=== PATIENT | male | born 1940 | race Caucasian/White ===

== ENCOUNTER 2019-01-22 10:46 | Emergency (ER) | payer OTHER, MEDICARE ==
--- NOTE | 2019-01-22 10:59 | EDM.PDOC ---
ED HPI GENERAL MEDICAL PROBLEM - General Chief Complaint: Lower Extremity Injury/Pain Stated Complaint: INJURED LT HIP Time Seen by Provider: 01/22/19 10:54 Source of Information: Reports: Patient History Limitations: Reports: No Limitations - History of Present Illness INITIAL COMMENTS - FREE TEXT/NARRATIVE: HISTORY AND PHYSICAL: History of present illness: Patient is a 78-year-old male presents to the ED today via EMS with concern of left hip pain and injury that occurred last night about 7 PM. Patient states he went outside and slipped on the ice from standing height. Patient states he landed directly on his left hip. 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 Patient states he went to bed thinking that his pain would get better. Patient states he was unable to ambulate and get out of bed this morning so called EMS. Patient states that at his baseline he has a difficult time walking due to "bad knees"and a "bad back" from [place]. Patient states he did not hit his head and did not lose consciousness. Other than the hip pain, patient denies any other symptoms or concerns. Patient denies fever, chills, chest pain, shortness of breath, or cough. Denies headache, neck stiff ness, change in vision, syncope, or near syncope. Denies nausea, vomiting, abdominal pain, diarrhea, constipation, or dysuria. Has not noted any blood in urine or stool. Patient has been eating and drinking appropriately. Review of systems: As per history of present illness and below otherwise all systems reviewed and negative. Past medical history: As per history of present illness and as reviewed below otherwise noncontributory. Surgical history: As per history of present illness and as reviewed below otherwise noncontributory. Social history: See social history for further information Family history: As per history of present illness and as reviewed below otherwise noncontributory. Physical exam: General: Patient is alert, oriented, and in no acute distress. Patient laying comfortably on exam table. HEENT: Atraumatic, normocephalic, pupils equal and reactive bilaterally, negative for conjunctival pallor or scleral icterus, mucous membranes moist, TMs normal bilaterally, throat clear, neck supple, nontender, trachea midline. No drooling or trismus noted. No meningeal signs. No hot potato voice noted. Lungs: Clear to auscultation, breath sounds equal bilaterally, chest nontender. Heart: S1S2, regular rate and rhythm without overt murmur Abdomen: Soft, nondistended, nontender. Negative for masses or hepatosplenomegaly. Negative for costovertebral tenderness. Pelvis: Stable nontender. Genitourinary: Deferred. Rectal: Deferred. Skin: Intact, warm, dry. No lesions or rashes noted. Extremities: Atraumatic, negative for cords or calf pain. Neurovascular unremarkable. No obvious deformity of the complete spine. No step-offs, crepitus , or point tenderness to palpation of the complete spine. Neuro: Awake, alert, oriented. Cranial nerves II through XII unremarkable. Cerebellum unremarkable. Motor and sensory unremarkable throughout. Exam nonfocal. Notes: Trauma alert was called upon arrival to the ED. Dr. Vitale directly involved in patient care. I did call and speak to Dr. Villanueva, orthopedic on-call, and thoroughly discussed patient's diagnostics and physical exam. Per Dr. Villanueva, patient is to bear weight as tolerated with a walker and use NSAIDs for pain management. Patient is to follow-up with Dr. Villanueva in one week in the clinic for follow-up. Patient states he does have a walker available to him at home. Voices understanding and is agreeable to plan of care. Denies any further questions or concerns at this time. Diagnostics: Hip with pelvic XR, CXR, CBC, CMP, UA, EKG, troponin, pt/INR, lipase Therapeutics: None Prescription: Diclofenac Impression: Acute periprosthetic fracture of the left greater trochanter Plan: 1. Take medication as prescribed. You can also use Tylenol as directed for pain and discomfort. 2. Use a walker and weight-bear as tolerated. Follow-up with orthopedics in one week and as discussed. 3. Return to the ED as needed and as discussed. Definitive disposition and diagnosis as appropriate pending reevaluation and review of above. left hip Pain Score (Numeric/FACES): 8 - Related Data Allergies Allergy/AdvReac Type Severity Reaction Status Date / Time No Known Allergies Allergy Verified 01/22/19 11:06 Home Meds: Home Meds Aspirin [Lo-Dose Aspirin EC] 81 mg PO DAILY 01/22/19 [History] Cyclobenzaprine [Flexeril] 10 mg PO BEDTIME 01/22/19 [History] Cyproheptadine HCl 4 mg PO BEDTIME 01/22/19 [History] Diclofenac Sodium [Voltaren] 75 mg PO BIDMEALS PRN #15 tab.cr 01/22/19 [Rx] Donepezil HCl 10 mg PO DAILY 01/22/19 [History] Gabapentin [Neurontin] 100 mg PO BID 01/22/19 [History] Ibuprofen [Motrin] 600 mg PO Q8H PRN 01/22/19 [History] Losartan [Cozaar] 0.5 tab PO DAILY 01/22/19 [History] Melatonin 3 mg PO BEDTIME 01/22/19 [History] Mesalamine [Apriso] 2 tab PO BID 01/22/19 [History] Metoprolol Succinate [Toprol Xl] 0.5 tab PO BEDTIME 01/22/19 [History] Argyle-3/DHA/Epa/Fish Oil [Fish Oil 1,000 mg Softgel] 2 tab PO BID 01/22/19 [ History] Omeprazole 20 mg PO BID 01/22/19 [History] QUEtiapine [SEROquel] 0.5 tab PO DAILY 01/22/19 [History] Sertraline HCl [Zoloft] 1.5 tab PO DAILY 01/22/19 [History] Urea [Urea 20% Crm] 1 applic TOP ASDIRECTED 01/22/19 [History] atorvaSTATin [Lipitor] 80 mg PO BEDTIME 01/22/19 [History] traZODone HCl [Trazodone HCl] 2 tab PO BEDTIME 01/22/19 [History] ED ROS GENERAL - Review of Systems Review Of Systems: ROS reveals no pertinent complaints other than HPI. ED EXAM, GENERAL - Physical Exam Exam: See Below (See dictation) Course - Vital Signs Last Recorded V/S: Last Vital Signs Temp 99 F 01/22/19 10:46 Pulse 61 01/22/19 10:46 Resp 17 01/22/19 10:46 BP 147/56 H 01/22/19 10:46 Pulse Ox 93 L 01/22/19 10:46 - Orders/Labs/Meds Orders: Active Orders 24 hr Category Date Time Status EKG Documentation Completion [RC] STAT Care 01/22/19 10:55 Active C DIFFICILE AG/TOXIN W/REFLEX [RM] Stat Lab 01/22/19 11:05 Received CULTURE STOOL + CAMPY+SHIGATOX [RM] Stat Lab 01/22/19 11:05 Received OVA & PARASITES BY IMMUNOASSAY [MREF] Stat Lab 01/22/19 11:05 Received Labs: Laboratory Tests 01/22/19 01/22/19 01/22/19 Range/Units 11:30 11:30 11:30 WBC 6.54 (4.0-11.0) K/uL RBC 3.73 L (4.50-5.90) M/uL Hgb 12.6 L (13.0-17.0) g/dL Hct 36.5 L (38.0-50.0) % MCV 97.9 (80.0-98.0) fL MCH 33.8 H (27.0-32.0) pg MCHC 34.5 (31.0-37.0) g/dL RDW Std Deviation 45.1 (28.0-62.0) fl RDW Coeff of Ron 13 (11.0-15.0) % Plt Count 170 (150-400) K/uL MPV 10.60 (7.40-12.00) fL Neut % (Auto) 63.2 (48.0-80.0) % Lymph % (Auto) 19.4 (16.0-40.0) % [place]wood % (Auto) 9.5 (0.0-15.0) % Eos % (Auto) 7.6 H (0.0-7.0) % Baso % (Auto) 0.3 (0.0-1.5) % Neut # (Auto) 4.1 (1.4-5.7) K/uL Lymph # (Auto) 1.3 (0.6-2.4) K/uL [place]wood # (Auto) 0.6 (0.0-0.8) K/uL Eos # (Auto) 0.5 (0.0-0.7) K/uL Baso # (Auto) 0.0 (0.0-0.1) K/uL Nucleated RBC % 0.0 /100WBC Nucleated RBCs # 0 K/uL INR 0.96 Sodium 140 (136-148) mmol/L Potassium 4.2 (3.5-5.1) mmol/L Chloride 105 (98-107) mmol/L Carbon Dioxide 25.7 (21.0-32.0) mmol/L BUN 15 (7.0-18.0) mg/dL Creatinine 1.1 (0.8-1.3) mg/dL Est Cr Clr Drug Dosing 52.58 mL/min Estimated GFR (MDRD) > 60.0 ml/min Glucose 107 H (74-106) mg/dL Calcium 8.9 (8.5-10.1) mg/dL Total Bilirubin 0.6 (0.2-1.0) mg/dL AST 30 (15-37) IU/L ALT 25 (14-63) IU/L Alkaline Phosphatase 131 H (46-116) U/L Troponin I < 0.050 (0.000-0.056) ng/mL Total Protein 9.3 H (6.4-8.2) g/dL Albumin 3.7 (3.4-5.0) g/dL Globulin 5.6 H (2.6-4.0) g/dL Albumin/Globulin Ratio 0.7 L (0.9-1.6) Lipase 143 (73-393) U/L Departure - Departure Time of Disposition: 12:32 Disposition: Home, Self-Care 01 Clinical Impression: Periprosthetic hip fracture Qualifiers: Encounter type: initial encounter Qualified Code(s): M97.8XXA - Periprosthetic fracture around other internal prosthetic joint, initial encounter - Discharge Information Prescriptions: Diclofenac Sodium [Voltaren] 75 mg PO BIDMEALS PRN #15 tab.cr PRN Reason: Pain Instructions: Hip Fracture Referrals: PCP,Not In Area [Primary Care Provider] - Forms: ED Department Discharge Additional Instructions: The following information is given to patients seen in the emergency department who are being discharged to home. This information is to outline your options for follow-up care. We provide all patients seen in our emergency department with a follow-up referral. The need for follow-up, as well as the timing and circumstances, are variable depending upon the specifics of your emergency department visit. If you don't have a primary care physician on staff, we will provide you with a referral. We always advise you to contact your personal physician following an emergency department visit to inform them of the circumstance of the visit and for follow-up with them and/or the need for any referrals to a consulting specialist. The emergency department will also refer you to a specialist when appropriate. This referral assures that you have the opportunity for follow-up care with a specialist. All of these measure are taken in an effort to provide you with optimal care, which includes your follow-up. Under all circumstances we always encourage you to contact your private physician who remains a resource for coordinating your care. When calling for follow-up care, please make the office aware that this follow-up is from your recent emergency room visit. If for any reason you are refused follow-up, please contact the [facility] Emergency Department at and asked to speak to the emergency department charge nurse. [facility] [address] [place] [address] [facility] [address] [place] [address] [id number] [facility] - [facility] Professional Building [address] [place] [address], [address] [place] [address] Dr Payne, Orthopedist [facility] [address] [place] [address] Dr Corral - Dr Sanchez - Dr Chi [facility] [address] [place] [address] [facility] [address] [place] [address] 1. Take medication as prescribed. You can also use Tylenol as directed for pain and discomfort. 2. Use a walker and weight-bear as tolerated. Follow-up with orthopedics in one week and as discussed. 3. Return to the ED as needed and as discussed. - My Orders Last 24 Hours: My Active Orders 01/22/19 10:55 EKG Documentation Completion [RC] STAT 01/22/19 11:05 C DIFFICILE AG/TOXIN W/REFLEX [RM] Stat CULTURE STOOL + CAMPY+SHIGATOX [] Stat OVA & PARASITES BY IMMUNOASSAY [MREF] Stat - Assessment/Plan Last 24 Hours: My Active Orders 01/22/19 10:55 EKG Documentation Completion [RC] STAT 01/22/19 11:05 C DIFFICILE AG/TOXIN W/REFLEX [RM] Stat CULTURE STOOL + CAMPY+SHIGATOX [RM] Stat OVA & PARASITES BY IMMUNOASSAY [MREF] Stat
--- NOTE | 2019-01-22 12:00 | CR ---
INDICATION: Fall from standing position TECHNIQUE: Chest 1 view. COMPARISON: None FINDINGS: Cardiovascular and mediastinum: Heart size and vasculature are normal in caliber and appearance. Mediastinum is within normal limits. Lungs and pleural space: Elevation left hemidiaphragm. No sign of infiltrate or mass. No sign of pleural effusion. No pneumothorax. Bones and soft tissues: No significant findings. Note is made removal of the left 5th rib. IMPRESSION: No acute pulmonary or cardiac abnormality is. No evidence of acute chest trauma. Elevation left hemidiaphragm. Dictated by Brannon Gutierrez MD @ 01/22/2019 11:58:50 AM Dictated by: Brannon Gutierrez MD @ 01/22/2019 11:58:54 (Electronically Signed)
[2019-01-22 12:01] LABS: BLOOD UREA NITROGEN,BUN 15 mg/dL (7.0-18.0); CARBON DIOXIDE,CO2 25.7 mmol/L (21.0-32.0); CHLORIDE,CL 105 mmol/L (98-107); GLUCOSE RANDOM 107 mg/dL (74-106); LIPASE 143 U/L (73-393); POTASSIUM,K 4.2 mmol/L (3.5-5.1); SODIUM,NA 140 mmol/L (136-148)
--- NOTE | 2019-01-22 12:11 | CR ---
Indication: Trauma. Fall. Left hip pain. Technique: Pelvis one view. Left hip two views. Comparison: None. Findings: There is an acute periprosthetic fracture involving the left greater trochanter. Left hip arthroplasty appears appropriately positioned. No evidence of dislocation. No additional evidence of fracture. Mild heterotopic ossification about the left hip consistent with prior trauma/surgery. Mild degenerative changes of the right hip. Extensive vascular calcifications. Soft tissues elsewhere as imaged are unremarkable. Impression: Acute periprosthetic fracture of the left greater trochanter. Dictated by Camilo Lee MD @ 01/22/2019 12:10:16 PM Dictated by: Camilo Lee MD @ 01/22/2019 12:10:26 (Electronically Signed)
== END 2019-01-22 13:15 | disposition home or self-care (01) ==
LOC: MW.ED 10:46
DX: M97.02XA Periprosthetic fracture around internal prosthetic left hip joint, initial encounter (principal); S72.112A Displaced fracture of greater trochanter of left femur, initial encounter for closed fracture; W19.XXXA Unspecified fall, initial encounter; Z79.82 Long term (current) use of aspirin; Z79.899 Other long term (current) drug therapy
CPT/HCPCS: 36415; 71045; 71045-26; 73502-26-LT; 73502-LT; 80053; 83690; 84484; 85025; 85610; 87046; 87324; 87328; 87329; 87899; 99284; 99284-25